=== PATIENT | male | born 1985 | race African-American/Black ===

== ENCOUNTER 2020-08-09 12:43 | Emergency (ER) | payer OTHER ==
[2020-08-09 13:15] VITALS: BP 133/78
--- NOTE | 2020-08-09 14:25 | XRAY Report ---
PROCEDURE: Ankle 3 View LT INDICATIONS: rolled ankle TECHNIQUE: 3 views of the ankle were acquired. COMPARISON: None FINDINGS: Bones: No fractures or dislocations. Ankle mortise is normally aligned. No suspicious bony lesions . The talar dome demonstrates an unremarkable appearance. Soft tissues: No tibiotalar joint effusion. Achilles tendon appears normal. IMPRESSION: No acute plain film abnormality is seen. Reviewed by: Pillo Diaz MD on 08/09/2020 1:24 PM [facility]DT Approved by: Pillo Diaz MD on 08/09/2020 1:24 PM AKDT Station ID: [id number]
--- NOTE | 2020-08-09 14:30 | ED Physician Documentation ---
PD HPI LOWER EXT INJURY - Stated complaint Stated Complaint: LT ANKLE INJ - Chief complaint Chief Complaint: Trauma Ext - History obtained from History obtained from: Patient - History of Present Illness PD HPI LOW EXT INJURY LOCATION: Left, Ankle Type of injury: Twist Where injury occurred: Work Timing - onset: Today Timing - duration: Hours Timing - details: Abrupt onset, Still present Improved by: Rest, Immobilization Worsened by: Moving, Palpating Associated symptoms: Swelling. 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 He had an inversion ankle ankle injury on the left side and has now pain over the talofibular ligament on the left. He is having difficulty bearing weight. Review of Systems Constitutional: denies: Fever Respiratory: denies: Cough GI: denies: Vomiting Musculoskeletal: reports: Joint swelling, Pain with weight bearing PD PAST MEDICAL HISTORY - Past Medical History Past Medical History: No Cardiovascular: None Respiratory: None Neuro: None Endocrine/Autoimmune: None GI: None : None HEENT: None Psych: None Musculoskeletal: None Derm: None - Past Surgical History Past Surgical History: No - Allergies Allergies/Adverse Reactions: Allergies Allergy/AdvReac Type Severity Reaction Status Date / Time No Known Drug Allergies Allergy Verified 08/09/20 13:15 - Social History Does the pt smoke?: No Smoking Status: Never smoker Does the pt drink ETOH?: Yes Does the pt have substance abuse?: No - Immunizations Immunizations are current?: Yes - POLST Patient has POLST: No PD ED PE NORMAL - Vitals Vital signs reviewed: Yes (hypertensive) - General General: Alert and oriented X 3, No acute distress, Well developed/nourished - HEENT HEENT: Atraumatic, PERRL, EOMI - Respiratory Respiratory: No respiratory distress - Derm Derm: Normal color, Warm and dry, No rash - Extremities Extremities: No deformity, Other (There is swelling and tenderness to the talofibular ligament on the left. Distal n/v is intact. no pain to palp proximal 5th. ) - Neuro Neuro: Alert and oriented X 3, video news editor 2-12 intact, No motor deficit, No sensory deficit, Normal speech Eye Opening: Spontaneous Motor: Obeys Commands Verbal: Oriented GCS Score: 15 - Psych Psych: Normal mood, Normal affect Results - Vitals Vitals: Vital Signs - 24 hr 08/09/20 13:10 Temperature 36.6 C Heart Rate 70 Respiratory 14 Rate Blood Pressure 133/78 H O2 Saturation 99 Oxygen O2 Source Room air - Rads (name of study) ankle Radiology: Prelim report reviewed (Impression: No acute plain film abnormality is seen.), EMP read indepedently, See rad report Procedures - Splint (location) left ankle Splint applied by: Tech Type of splint: Ankle airsplint Other: Patient tolerated well, No complications, Neurovascular intact, Good alignment, Crutches provided PD MEDICAL DECISION MAKING - ED course Complexity details: reviewed results, re-evaluated patient, considered differential, d/w patient ED course: 34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
== END 2020-08-09 14:44 | disposition home or self-care (01) ==
LOC: ED 12:43
DX: S93.492A Sprain of other ligament of left ankle, initial encounter (principal); W07.XXXA Fall from chair, initial encounter; X50.1XXA Overexertion from prolonged static or awkward postures, initial encounter; Y99.1 Military activity; R03.0 Elevated blood-pressure reading, without diagnosis of hypertension
CPT/HCPCS: 99282; 99283

== ENCOUNTER 2022-02-15 06:55 | Outpatient (CLI) | payer OTHER ==
--- NOTE | 2022-02-15 10:59 | MRI Report ---
PROCEDURE: Ankle LT W/O INDICATIONS: PAIN IN ANKLE. TECHNIQUE: Noncontrast Magnetic Resonance Imaging (MRI) of the ankle/hindfoot was performed utilizing the follow ing sequences: sagittal T1 spin echo, sagittal STIR, axial PD fast spin echo, axial T2 fast spin echo with fat saturation, coronal T2 spin echo with fat saturation, and coronal PD fast spin echo with fa t saturation. COMPARISON: Left ankle radiographs 08/09/2020. FINDINGS: Image quality: Excellent. Bones and joints: No acute trabecular bone injury. There is a chronic osteochondral lesion at the lateral talar dome me asuring approximately 11 x 6 x 5 mm with cystic changes and mild subchondral edema. Minimal irregular ity of the subchondral plate is seen with adjacent partial thickness cartilage loss. No loose osteoch ondral fragment is seen. Surgical anchors are seen in the lateral talus and the lateral fibula. Medial structures: Mild heterogeneity of the deep deltoid ligament is most likely secondary to a prior low-grade sprain. The bulk of the ligament fibers appear to be intact. The visualized spring ligament components are i ntact. The posterior tibialis, flexor digitorum longus, and flexor hallucis longus tendons are intact and within normal limits. The posterior tibial neurovascular bundle appears normal within the tarsal tunnel, without extrinsic mass effect. Lateral structures: The anterior and posterior inferior tibiofibular ligaments are intact. There is interval changes are seen from lateral ligament reconstruction. The anterior talofibular ligament graft is intact. The elda caneofibular ligament appears mildly thickened but intact. The posterior talofibular ligament is inta ct. There is mild peroneus brevis brevis and longus tenosynovitis and peroneus brevis tendinosis. A g anglion cyst is seen at the superolateral aspect of the sinus tarsi measuring up to 8 x 4 x 5 mm. Sin us tarsi fat signal is otherwise preserved. Anterior structures: The tibialis anterior, extensor hallucis longus, and extensor digitorum longus tendons appear intact. Posterior and plantar structures: The Achilles tendon is intact. Small nonedematous posterior calcaneal enthesophyte. The medial and la teral bands of the plantar fascia are within normal limits. No disproportionate atrophy of the abduct or digiti minimi muscle. IMPRESSION: 1.Postsurgical changes from lateral ligament reconstruction with an intact surgical construct. 2.Mild peroneus brevis brevis and longus tenosynovitis and tendinosis. 3.Chronic low-grade sprain of the deep deltoid ligament. 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 There is mild irregularity of the subchondral plate without a loose osteochond ral fragment. Reviewed by: Pawan Vargas MD on 02/15/2022 9:58 AM [facility] Approved by: Pawan Vargas MD on 02/15/2022 9:58 AM SHAN[facility] Station ID: [id number]
== END 2022-02-15 06:56 | disposition home or self-care (01) ==
LOC: DI 06:55
PROVIDERS: ATTEND Family Medicine
DX: M65.9 Synovitis and tenosynovitis, unspecified (principal); S93.422A Sprain of deltoid ligament of left ankle, initial encounter; M85.672 Other cyst of bone, left ankle and foot